=== PATIENT | female | born 1960 | race African-American/Black ===

== ENCOUNTER 2021-02-04 16:32 | Emergency (ER) | payer BC, SELFPAY ==
--- NOTE | 2021-02-04 19:57 | EDPHYS ---
Physician Documentation [facility] Name: Meggan Tolbert Age: 60 yrs Sex: Female : 1960 Arrival Date: 02/04/2021 Time: 16:34 Bed 1 Private MD: ED Physician Avery Lynn HPI: 02/04 19:52 This 60 yrs old Black Female presents to ER via Ambulatory with complaints of Bump on jmm Neck. 19:52 the patient presents with a swollen area of the right mastoid area. Onset: The jmm symptoms/episode began/occurred gradually, 7 month(s) ago. Possible cause(s): unknown. Associated signs and symptoms: Pertinent positives: pain. Modifying factors: the symptoms are alleviated by nothing, the symptoms are aggravated by nothing. This is a 60 year old female with a history of htn that presents to the ED with complaints of right post auricular swelling for 7 months. States she has developed increased pain and swelling over the past few days. Denies fever. . Historical: - Allergies: 16:38 No Known Allergies; sv - PMHx: 16:38 Hypertension; sv - PSHx: 16:38 ; sv - Immunization history:: Client reports having NOT received the Covid vaccine. - Social history:: Smoking status: Patient denies any tobacco usage or history of. ROS: 19:52 Constitutional: Negative for fever, chills, and weight loss, Cardiovascular: Negative jmm for chest pain, palpitations, and edema, Respiratory: Negative for shortness of breath, cough, wheezing, and pleuritic chest pain. 19:52 Skin: Positive for swelling. 19:52 All other systems are negative. Exam: 19:52 Constitutional: This is a well developed, well nourished patient who is awake, alert, jmm and in no acute distress. Head/Face: atraumatic. Eyes: EOMI, no conjunctival erythema appreciated 19:52 Neck: Trachea midline, Supple Chest/axilla: Normal chest wall appearance and motion. Cardiovascular: Regular rate and rhythm. No edema appreciated Respiratory: Normal respirations, no respiratory distress appreciated Abdomen/GI: Non distended, soft Back: Normal ROM Skin: General appearance color normal MS/ Extremity: Moves all extremities, no obvious deformities appreciated, no edema noted to the lower extremities Neuro: Awake and alert, normal gait Psych: Behavior is normal, Mood is normal, Patient is cooperative and pleasant 19:52 ENT: swollen cyst like mass noted to the posterior auricular region. Vital Signs: 16:38 BP 160 / 102; Pulse 76; Resp 16; Temp 98.8; Pulse Ox 99% ; Weight 74.84 kg; Height 5 sv ft. 4 in. (162.56 cm); Pain 0/10; 16:38 Body Mass Index 28.32 (74.84 kg, 162.56 cm) sv Procedures: 19:54 I \T\ D: Incision and drainage was performed for an abscess of the right mastoid area jmm Prepped with Betadine, Anesthetized with 1 ml's 1% Lidocaine. Drained moderate amount purulent fluid. serosanguinous fluid. Dressing: sterile 4x4 gauze, the patient tolerated the procedure well. MDM: 19:51 Patient medically screened. [facility] 19:54 Data reviewed: vital signs, nurses notes. Counseling: I had a detailed discussion with [facility] the patient and/or guardian regarding: the historical points, exam findings, and any diagnostic results supporting the discharge/admit diagnosis, the need for outpatient follow up, to return to the emergency department if symptoms worsen or persist or if there are any questions or concerns that arise at home. ED course: Patient advised to follow up with with gen surgery for further evaluation. patient otherwise given strict return precautions. patient understood and agrees with the plan of care. . Administered Medications: 19:45 Drug: Lidocaine (1 %) 5 ml {Note: administered by Josiah RAMSEY to affected area.} bb Volume: 5 ml; Route: Infiltration; 19:58 Follow up: Response: No adverse reaction bb Disposition: 02/05 05:48 Co-signature as Attending Physician, Avery Lynn MD. [email or web address] Disposition: 02/04/21 19:56 Discharged to Home. Impression: Infected Cyst. - Condition is Stable. - Prescriptions for Ultracet 37.5- 325 mg Oral Tablet - take 1 tablet by ORAL route every 6 hours - for up to 5 days; do not exceed 8 tablets per day.; 12 tablet. Bactrim DS 800- 160 mg Oral Tablet - take 1 tablet by ORAL route every 12 hours for 7 days; 14 tablet. - Medication Reconciliation Form, Thank You Letter, Antibiotic Education, Prescription Opioid Use form. - Follow up: Roverto Lewis MD; When: 2 - 3 days; Reason: Recheck today's complaints, Continuance of care, Re-evaluation by your physician. Signatures: Angie Stanton, MADELEINE RN Josiah Bazzi PA PA jmm Ballard, Brenda, RN RN bb Avery Lynn MD MD [email or web address] Corrections: (The following items were deleted from the chart) 02/04 20:05 19:56 02/04/2021 19:56 Discharged to Home. Impression: Infected Cyst. Condition is bb Stable. Forms are Medication Reconciliation Form, Thank You Letter, Antibiotic Education, Prescription Opioid Use. Follow up: Roverto Lewis; When: 2 - 3 days; Reason: Recheck today's complaints, Continuance of care, Re-evaluation by your physician. kasia
--- NOTE | 2021-02-04 19:57 | ER ---
Nurse's Notes [facility] Name: Meggan Tolbert Age: 60 yrs Sex: Female : 1960 Arrival Date: 02/04/2021 Time: 16:34 Bed 1 Private MD: Diagnosis: Infected Cyst Presentation: 02/04 16:37 Chief complaint: Patient states: "I have a bump behind my right ear that has been there sv for months. I went to the clinic but they didn't do anything.". Coronavirus screen: Client denies travel out of the [place] in the last 14 days. At this time, the client does not indicate any symptoms associated with coronavirus-19. Ebola Screen: No symptoms or risks identified at this time. Risk Assessment: Do you want to hurt yourself or someone else? Patient reports no desire to harm self or others. Onset of symptoms was 2020. 16:37 Method Of Arrival: Ambulatory sv 16:37 Acuity: JIMENEZ 4 sv 16:38 Initial Sepsis Screen: Does the patient meet any 2 criteria? No. Patient's initial sv sepsis screen is negative. Does the patient have a suspected source of infection? No. Patient's initial sepsis screen is negative. Triage Assessment: 16:40 General: Appears in no apparent distress. comfortable, Behavior is calm, cooperative, sv appropriate for age. Pain: Denies pain. Neuro: Level of Consciousness is awake, alert, obeys commands, Gait is steady. Respiratory: Respiratory effort is even, unlabored. Historical: - Allergies: 16:38 No Known Allergies; sv - PMHx: 16:38 Hypertension; sv - PSHx: 16:38 ; sv - Immunization history:: Client reports having NOT received the Covid vaccine. - Social history:: Smoking status: Patient denies any tobacco usage or history of. Screenin:54 Abuse screen: Denies threats or abuse. Nutritional screening: No deficits noted. bb Tuberculosis screening: No symptoms or risk factors identified. Fall Risk None identified. Assessment: 19:54 General: Appears in no apparent distress. Behavior is calm, cooperative. Pain: Denies bb pain. Neuro: Level of Consciousness is awake, alert, obeys commands, Oriented to person, place, time, situation. Cardiovascular: No deficits noted. Respiratory: Respiratory effort is even, unlabored, Respiratory pattern is regular. GI: No signs and/or symptoms were reported involving the gastrointestinal system. EENT: Reports bump by right ear x 7 months. Derm: Skin is dry, Skin is normal, Skin temperature is warm. Musculoskeletal: Circulation, motion, and sensation intact. 20:04 Reassessment: Patient is alert, oriented x 3, equal unlabored respirations, skin bb warm/dry/pink. pt verbalized understanding of and agrees to plan of care discharge instructions given pt ambulated with steady gait to exit. Vital Signs: 16:38 BP 160 / 102; Pulse 76; Resp 16; Temp 98.8; Pulse Ox 99% ; Weight 74.84 kg; Height 5 sv ft. 4 in. (162.56 cm); Pain 0/10; 16:38 Body Mass Index 28.32 (74.84 kg, 162.56 cm) sv ED Course: 16:34 Patient arrived in ED. ds1 16:36 Arm band placed on. sv 16:38 Triage completed. sv 19:51 [facility] Goldberg [facility] 19:51 Avery Lynn MD is Attending Physician. [facility] 19:54 Acacia Conroy RN is Primary Nurse. bb 19:54 Patient has correct armband on for positive identification. bb 19:54 No provider procedures requiring assistance completed. Patient did not have IV access bb during this emergency room visit. 19:55 Roverto Lewis MD is Referral Physician. [facility] Administered Medications: 19:45 Drug: Lidocaine (1 %) 5 ml {Note: administered by Josiah RAMSEY to affected area.} bb Volume: 5 ml; Route: Infiltration; 19:58 Follow up: Response: No adverse reaction bb Outcome: 19:56 Discharge ordered by . [facility] 20:05 Discharged to home ambulatory. bb 20:05 Condition: stable 20:05 Discharge instructions given to patient, Instructed on discharge instructions, follow up and referral plans. medication usage, Demonstrated understanding of instructions, follow-up care, medications, Prescriptions given X 2. 20:05 Patient left the ED. bb Signatures: Angie Stanton RN RN Josiah Goldberg PA PA Brenda Tamayo ds1 Acacia Conroy, MADELEINE RN bb Corrections: (The following items were deleted from the chart) 16:40 16:38 Pulse 76bpm; Resp 16bpm; Pulse Ox 99%; Temp 98.8F; 74.84 kg; Height 5 ft. 4 in.; sv BMI: 28.3; Pain 0/10; sv
[2021-02-04] MEDS ORDERED: LIDOCAINE 1% MPF 5 ML VIAL ONE (20:00)
[2021-02-04 20:24] VITALS: BP 160/102; TEMP 98.8; O2SAT 99
== END 2021-02-04 20:05 | disposition home or self-care (01) ==
LOC: ER 16:32
PROC: 0J940ZZ Drainage of Right Neck Subcutaneous Tissue and Fascia, Open Approach (ICD-10-PCS; principal; 2021-02-04)
DX: L72.9 Follicular cyst of the skin and subcutaneous tissue, unspecified (principal); I10 Essential (primary) hypertension
CPT/HCPCS: 99283

== ENCOUNTER 2021-09-30 09:12 | Emergency (ER) | payer SELFPAY ==
--- NOTE | 2021-09-30 11:00 | ER ---
Nurse's Notes [facility] Name: Meggan Tolbert Age: 60 yrs Sex: Female : 1960 Arrival Date: 09/30/2021 Time: 09:13 Bed 9 Private MD: Diagnosis: Coronavirus infection, unspecified Presentation: 09/30 10:06 Chief complaint: Patient states: Voice change: Pt states she took her first dose of eo2 Covid vaccine on Sunday. Pt states sore throat and voice change began on Sunday, "drank juice and my sore throat went away but my voice is still different". Reports COVID+ when tested at work today. Pt denies CP, SOB, ANDRADE, dizziness, N/V/D, loss of smell/taste, cough, runny nose, or congestion. Pt reports resolved sore throat, her main concern today is her voice. Pt audible with clear speech in triage. Coronavirus screen: Client presents with at least one sign or symptom that may indicate coronavirus-19. Standard/surgical mask placed on the client. Client reports previous positive COVID test result. Date of collection: September 30, 2021. Ebola Screen: Patient negative for fever greater than or equal to 101.5 degrees Fahrenheit, and additional compatible Ebola Virus Disease symptoms Patient denies exposure to infectious person. Patient denies travel to an Ebola-affected area in the 21 days before illness onset. 10:06 Method Of Arrival: Ambulatory eo2 10:15 Initial Sepsis Screen: Does the patient meet any 2 criteria? No. Patient's initial eo2 sepsis screen is negative. Does the patient have a suspected source of infection? No. Patient's initial sepsis screen is negative. Risk Assessment: Do you want to hurt yourself or someone else? Patient reports no desire to harm self or others. Onset of symptoms was September 27, 2021. 10:15 Acuity: JIMENEZ 5 eo2 10:15 Acuity: JIMENEZ 4 eo2 Triage Assessment: 10:13 General: Appears in no apparent distress. Behavior is calm, cooperative. Pain: Denies eo2 pain. EENT: Reports change in voice. Historical: - Allergies: 10:13 No Known Allergies; eo2 - PMHx: 10:13 Hypertension; eo2 - Immunization history:: Adult Immunizations up to date, Client reports receiving the 1st dose of the Covid vaccine, September 26, 2021. - Social history:: Smoking status: Patient denies any tobacco usage or history of. Patient uses. Screenin:19 Abuse screen: Denies threats or abuse. Nutritional screening: No deficits noted. al4 Tuberculosis screening: No symptoms or risk factors identified. Fall Risk None identified. Assessment: 11:17 General: Appears in no apparent distress. comfortable, Behavior is calm, cooperative, al4 Reports received first dose of covid vaccine on Sunday, and today her job tested her for covid and it resulted positive. patient denies all symptoms including n/v/d, fever, congestion, and shortness of breath. Pain: Denies pain. Neuro: Level of Consciousness is awake, alert, obeys commands, Oriented to person, place, time. Cardiovascular: Heart tones present Capillary refill < 3 seconds Patient's skin is warm and dry. Respiratory: Airway is patent Respiratory effort is even, unlabored, Respiratory pattern is regular, symmetrical, Breath sounds are clear bilaterally. GI: No signs and/or symptoms were reported involving the gastrointestinal system. : No signs and/or symptoms were reported regarding the genitourinary system. EENT: Throat is clear. Derm: No signs and/or symptoms reported regarding the dermatologic system. Musculoskeletal: No signs and/or symptoms reported regarding the musculoskeletal system. Vital Signs: 10:06 BP 150 / 97; Pulse 80; Resp 15; Temp 98.4; Pulse Ox 100% ; Weight 70.76 kg; Height 5 eo2 ft. 2 in. (157.48 cm); Pain 0/10; 11:18 BP 147 / 85; Pulse 73; Resp 18; Temp 98.4; Pulse Ox 98% ; Pain 0/10; al4 10:06 Body Mass Index 28.53 (70.76 kg, 157.48 cm) eo2 ED Course: 09:13 Patient arrived in ED. ds1 10:16 Triage completed. eo2 10:38 Josiah Goldberg PA is PHCP. jmm 10:38 Leandro Cross MD is Attending Physician. jmm 10:49 COVID-19/FLU A+B/RSV (Document "Date of Onset" if Symptomatic) Sent. andrade 10:49 Strep Sent. andrade 11:17 Jasbir Da Silva is Primary Nurse. al4 11:19 No provider procedures requiring assistance completed. Patient did not have IV access al4 during this emergency room visit. 11:19 Patient has correct armband on for positive identification. Bed in low position. Call al4 light in reach. Side rails up X2. Pulse ox on. NIBP on. Door closed. Noise minimized. 11:20 Arm band placed on. al4 Administered Medications: No medications were administered Outcome: 10:59 Discharge ordered by . kasia 11:25 Discharged to home ambulatory. al4 11:25 Condition: stable 11:25 Discharge instructions given to patient, Instructed on discharge instructions, follow up and referral plans. medication usage. 11:26 Patient left the ED. al4 Signatures: Josiah Goldberg PA PA jmm Sanford, Demi ds1 Jasbir Da Silva al4 Deanna-StageTiki chris, RN RN andrade Trinidad Guzmán, MADELEINE RN eo2 Corrections: (The following items were deleted from the chart) 11:21 11:17 General: Appears in no apparent distress. comfortable, Behavior is calm, al4 cooperative, al4 14:39 11:17 EENT: Throat is clear al4 al4
--- NOTE | 2021-09-30 11:01 | EDPHYS ---
Physician Documentation [facility] Name: Megagn Tolbert Age: 60 yrs Sex: Female : 1960 Arrival Date: 09/30/2021 Time: 09:13 Bed 9 Private MD: ED Physician Leandro Cross HPI: 09/30 10:55 This 60 yrs old Black Female presents to ER via Ambulatory with complaints of Sore jmm Throat. 10:55 The patient presents with sore throat. Onset: The symptoms/episode began/occurred jmm gradually, 1 day(s) ago. Modifying factors: The symptoms are alleviated by nothing, the symptoms are aggravated by nothing. Associated signs and symptoms: Pertinent negatives chills, cough, shortness of breath. Patient states having some mild sore throat beginning yesterday with a change in her voice. Able to eat and drink without difficulty. Denies cough or sob. Sent by employer due to positive covid test. Historical: - Allergies: 10:13 No Known Allergies; eo2 - PMHx: 10:13 Hypertension; eo2 - Immunization history:: Adult Immunizations up to date, Client reports receiving the 1st dose of the Covid vaccine, September 26, 2021. - Social history:: Smoking status: Patient denies any tobacco usage or history of. Patient uses. ROS: 10:55 Constitutional: Negative for fever, chills, and weight loss. jmm 10:55 Cardiovascular: Negative for chest pain, palpitations, and edema, Respiratory: Negative for shortness of breath, cough, wheezing, and pleuritic chest pain, Abdomen/GI: Negative for abdominal pain, nausea, vomiting, diarrhea, and constipation. 10:55 ENT: Positive for hoarseness, sore throat. 10:55 All other systems are negative. Exam: 10:55 Constitutional: This is a well developed, well nourished patient who is awake, alert, jmm and in no acute distress. Head/Face: atraumatic. Eyes: EOMI, no conjunctival erythema appreciated 10:55 Neck: Trachea midline, Supple Chest/axilla: Normal chest wall appearance and motion. Cardiovascular: Regular rate and rhythm. No edema appreciated Respiratory: Normal respirations, no respiratory distress appreciated Abdomen/GI: Non distended, soft Back: Normal ROM Skin: General appearance color normal MS/ Extremity: Moves all extremities, no obvious deformities appreciated, no edema noted to the lower extremities Neuro: Awake and alert, normal gait Psych: Behavior is normal, Mood is normal, Patient is cooperative and pleasant 10:55 ENT: Posterior pharynx: erythema, that is mild. Vital Signs: 10:06 BP 150 / 97; Pulse 80; Resp 15; Temp 98.4; Pulse Ox 100% ; Weight 70.76 kg; Height 5 eo2 ft. 2 in. (157.48 cm); Pain 0/10; 11:18 BP 147 / 85; Pulse 73; Resp 18; Temp 98.4; Pulse Ox 98% ; Pain 0/10; al4 10:06 Body Mass Index 28.53 (70.76 kg, 157.48 cm) eo2 MDM: 10:48 Patient medically screened. [facility] 10:58 Data reviewed: vital signs, nurses notes. Counseling: I had a detailed discussion with [facility] the patient and/or guardian regarding: the historical points, exam findings, and any diagnostic results supporting the discharge/admit diagnosis, the need for outpatient follow up, to return to the emergency department if symptoms worsen or persist or if there are any questions or concerns that arise at home. Medical screen evaluation completed. [facility] emergency medical condition absent. 09/30 10:21 Order name: Strep; Complete Time: 11:21 [facility] 09/30 10:21 Order name: COVID-19/FLU A+B/RSV (Document "Date of Onset" if Symptomatic) [facility] 09/30 11:22 Order name: Throat Culture EDMS Administered Medications: No medications were administered Disposition: 18:01 Co-signature as Attending Physician, Leandro Cross MD. rn Disposition Summary: 09/30/21 10:59 Discharge Ordered Location: Home as Medical Screen [facility] Condition: Stable [facility] Diagnosis - Coronavirus infection, unspecified [facility] Followup: [facility] - With: Private Physician - When: 2 - 3 days - Reason: Recheck today's complaints, Continuance of care, Re-evaluation by your physician Discharge Instructions: - Discharge Summary Sheet [facility] - COVID-19 [facility] Forms: - Medication Reconciliation Form [facility] - Thank You Letter [facility] - Antibiotic Education [facility] - Prescription Opioid Use [facility] Signatures: Dispatcher [employer] EDMS Josiah Goldberg PA PA jmm Nieto, Roman, MD MD rn Trinidad Guzmán, MADELEINE RN eo2
[2021-09-30 11:30] VITALS: TEMP 98.4
[2021-09-30 11:31] VITALS: BP 147/85; O2SAT 98
[2021-09-30 13:34] LABS: SARS-COV-2 RT PCR POSITIVE (NEGATIVE)
== END 2021-09-30 11:26 | disposition home or self-care (01) ==
LOC: ER 09:12
DX: U07.1 COVID-19 (principal)
CPT/HCPCS: 0241U; 87070; 87081; 99283